=== PATIENT | male | born 1965 | race Caucasian/White ===

== ENCOUNTER 2016-03-20 16:48 | Emergency (ER) | payer SELFPAY ==
[~2016-03-20] VITALS: Ht 170.2 cm; Wt 89.0 kg
[~2016-03-20 16:48] MED LIST: ALBU1AER INH; CYCL-36 PO; IBUP-238 PO; LORTA5 PO; PRED50 PO
[2016-03-20 16:56] VITALS: BP 139/86; PULSE 84; RESP 16; TEMP 99.1; O2SAT 98
[2016-03-20] MEDS ORDERED: IPRA0.06 EACH NARE (18:07)
[2016-03-20] MEDS ORDERED: IBUP800T23 PO (18:07)
--- NOTE | 2016-03-20 18:07 | PD ---
HPI Chief Complaint: Cold / Flu Symptoms Time Seen by Provider: 18:00 Travel History International Travel<30 days: No Contact w/Intl Traveler<30days: No Traveled to known affect area: No History of Present Illness HPI Patient is a 50-year-old male who presents emergency department for evaluation of a cough and nasal congestion. Patient states his symptoms have been present for 3 days. Patient had a Z-Link at his house that he started when his symptoms started. He denies any documented fevers but reports chills. He has no other complaints at this time. He does not smoke. He states the cough is dry, nonproductive, worse at night. He also reports postnasal drip. PFSH Past Medical History Arthritis: Yes (DIAGNOSED AT 12 YRS. OLD) Asthma: No Autoimmune Disease: No Blood Disorders: No Anxiety: No Depression: No Heart Rhythm Problems: No Cancer: No Cardiovascular Problems: Yes High Cholesterol: Yes (DIAGNOSED IN 2004.) Chemotherapy: No Chest Pain: No Congestive Heart Failure: No COPD: No Cerebrovascular Accident: No Diminished Hearing: No Endocrine: No Gastrointestinal Disorders: Yes GERD: Yes Genitourinary: No Headaches: No Hepatitis: No Hiatal Hernia: No Hypertension: No Immune Disorder: No Kidney Stones: No Neurologic: No Respiratory: No Migraines: No Myocardial Infarction: No Radiation Therapy: No Renal Failure: No Seizures: No Sleep Apnea: No Ulcer: No Past Surgical History Abdominal Surgery: Yes (APPENDECTOMY 2002) AICD: No Appendectomy: Yes (PERFORMED IN 2002) Arteriovenous Shunt: No Cardiac Surgery: No Cholecystectomy: No Ear Surgery: No Eye Surgery: No Genitourinary Surgery: No Gynecologic Surgery: No Insulin Pump: No Joint Replacement: No Oral Surgery: No Pacemaker: No Thoracic Surgery: No Other Surgery: Yes Social History Alcohol Use: No (DECEMBER OF 2005) Tobacco Use: No Substance Use: No (COCAINE LAST USED IN DECEMBER 2005.) Allergies-Medications (Allergen,Severity, Reaction): Coded Allergies: No Known Allergies (Verified , 03/20/16) Reported Meds & Prescriptions Reported Meds & Active Scripts Active Review of Systems Except as stated in HPI: all other systems reviewed are Neg General / Constitutional: Positive: Chills, No: Fever HENT: Positive: Rhinitis, Congestion, No: Headaches, Neck Pain Cardiovascular: No: Chest Pain or Discomfort Respiratory: Positive: Cough, No: Shortness of Breath Gastrointestinal: No: Nausea, Vomiting, Diarrhea Musculoskeletal: No: Myalgias Physical Exam Narrative GENERAL well-developed, well-nourished, alert male. Resting comfortably in no acute distress. SKIN: Warm and dry. HEAD: Atraumatic. Normocephalic. EYES: Pupils equal and round. No scleral icterus. No injection or drainage. ENT: No nasal bleeding or discharge. Mucous membranes pink and moist. Posterior pharynx cobblestone appearance. NECK: Trachea midline. No JVD. CARDIOVASCULAR: Regular rate and rhythm. No murmur appreciated. RESPIRATORY: No accessory muscle use. Clear to auscultation. Breath sounds equal bilaterally. GASTROINTESTINAL: Abdomen soft, non-tender, nondistended. Hepatic and splenic margins not palpable. MUSCULOSKELETAL: No obvious deformities. No clubbing. No cyanosis. No edema. NEUROLOGICAL: Awake and alert. No obvious cranial nerve deficits. Motor grossly within normal limits. Normal speech. PSYCHIATRIC: Appropriate mood and affect; insight and judgment normal. Data Data Last Documented VS Vital Signs Date Time Temp Pulse Resp B/P Pulse Ox O2 Delivery O2 Flow Rate FiO2 03/20/16 16:56 99.1 84 16 139/86 98 [facility] Medical Decision Making Medical Screen Exam Complete: Yes Emergency Medical Condition: Yes Interpretation(s) Vital Signs Date Time Temp Pulse Resp B/P Pulse Ox O2 Delivery O2 Flow Rate FiO2 03/20/16 16:56 99.1 84 16 139/86 98 Differential Diagnosis Viral syndrome versus bronchitis versus pneumonia versus sinusitis versus other Narrative Course Patient is a 50-year-old male who presents emergency department for evaluation of nasal congestion and cough. Patient started himself on azithromycin 3 days ago. Physical examination is most consistent with a viral upper respiratory infection. Patient's vital signs are stable. He is afebrile and well oxygenated on room air. Patient was encouraged to continue with symptomatic management. He was encouraged to obtain [id number] Sudafed, nasal saline wash. Patient be provided with a prescription for Atrovent nasal spray. He is encouraged to follow-up with her primary doctor return to emergency department for any new or worsening symptoms. He was advised just to complete the Z-Link since he has started it. Patient verbalized understanding of discharge instructions. Patient is stable for discharge. Diagnosis Primary Impression: Viral URI with cough Referrals: Primary Care Physician Patient Instructions: General Instructions, Upper Respiratory Infection (ED) Additional Instructions: Follow-up with your primary doctor Continue symptom management Obtain [id number] Sudafed or nasal decongestant and use as directed Obtain nasal saline wash and use as directed Return to emergency department for any new or worsening symptoms Med/Other Pt SpecificInfo: Prescription(s) given Scripts Ibuprofen 800 Mg [id number] Mg PO Q8H PRN (Pain/Inflammation) #60 TAB Ref 0 Prov:Diana Morgan 03/20/16 Ipratropium Nasal 0.06% Spray1 [place] EACH NARE QID #1 BOTTLE Ref 0 Prov:Diana Morgan 03/20/16 Disposition: 01 DISCHARGE HOME Condition: Stable Diana Morgan Mar 20, 2016 18:07
== END 2016-03-20 18:15 | disposition home or self-care (01) ==
LOC: PHED 16:48 → PHEFT 18:15
DX: J06.9 Acute upper respiratory infection, unspecified (principal); R05 Cough; E78.00 Pure hypercholesterolemia, unspecified; R09.82 Postnasal drip
CPT/HCPCS: 99283

== ENCOUNTER 2016-03-25 11:48 | Emergency (ER) | payer SELFPAY ==
[~2016-03-25] VITALS: Ht 170.2 cm; Wt 89.3 kg
[~2016-03-25 11:48] MED LIST changes: -ALBU1AER INH; -CYCL-36 PO; -IBUP-238 PO; +IBUP800T23 PO; +IPRA0.06 EACH NARE; -LORTA5 PO; -PRED50 PO
[2016-03-25 11:57] VITALS: BP 126/88; PULSE 80; RESP 16; TEMP 98.3; O2SAT 96
--- NOTE | 2016-03-25 12:11 | PD ---
HPI Chief Complaint: Cold / Flu Symptoms Time Seen by Provider: 12:09 Travel History International Travel<30 days: No Contact w/Intl Traveler<30days: No Traveled to known affect area: No History of Present Illness HPI 50-year-old male presents to the emergency department for evaluation of cold symptoms. Patient was seen on Wednesday and was given a nasal spray. He states that he had a Z-Link at home that he took. He finished it yesterday. He states the cough has improved, but he does report increased chest congestion and nasal congestion. He states he has run a low-grade fever of 100.0 in the past. No fever currently. He does report a history of bronchitis. He is not taking any prescribed medications. Denies any chest pain. No abdominal pain. No vomiting. No other symptoms. He has not followed up with a primary care physician for this issue. PFSH Past Medical History Arthritis: Yes (DIAGNOSED AT 12 YRS. OLD) Asthma: No Autoimmune Disease: No Blood Disorders: No Anxiety: No Depression: No Heart Rhythm Problems: No Cancer: No Cardiovascular Problems: Yes High Cholesterol: Yes (DIAGNOSED IN 2004.) Chemotherapy: No Chest Pain: No Congestive Heart Failure: No COPD: No Cerebrovascular Accident: No Diminished Hearing: No Endocrine: No Gastrointestinal Disorders: Yes GERD: Yes Genitourinary: No Headaches: No Hepatitis: No Hiatal Hernia: No Hypertension: No Immune Disorder: No Kidney Stones: No Neurologic: No Respiratory: No Migraines: No Myocardial Infarction: No Pneumonia: Yes Radiation Therapy: No Renal Failure: No Seizures: No Sleep Apnea: No Ulcer: No Tetanus Vaccination: > 5 Years Influenza Vaccination: No Past Surgical History Abdominal Surgery: Yes (APPENDECTOMY 2002) AICD: No Appendectomy: Yes (PERFORMED IN 2002) Arteriovenous Shunt: No Cardiac Surgery: No Cholecystectomy: No Ear Surgery: No Eye Surgery: No Genitourinary Surgery: No Gynecologic Surgery: No Insulin Pump: No Joint Replacement: No Oral Surgery: No Pacemaker: No Thoracic Surgery: No Other Surgery: Yes Social History Alcohol Use: No (DECEMBER OF 2005) Tobacco Use: No Substance Use: No (COCAINE LAST USED IN DECEMBER 2005.) Allergies-Medications (Allergen,Severity, Reaction): Coded Allergies: No Known Allergies (Verified , 03/25/16) Reported Meds & Prescriptions Reported Meds & Active Scripts Active Ibuprofen 800 Mg Tab 800 Mg PO Q8H PRN Ipratropium Nasal 0.06% [place] 1 [place] EACH NARE QID Review of Systems Except as stated in HPI: all other systems reviewed are Neg Physical Exam Narrative GENERAL: Well-developed well-nourished male patient, ambulatory. Afebrile. SKIN: Warm and dry. HEAD: Normocephalic. Atraumatic. No sinus tenderness to palpation ENT: Mucosa pink and moist. No erythema or exudates. No uvular edema. No uvular , palatal, or tonsillar deviation. Airway patent. Nasal turbinates appear normal without nasal blood, purulent drainage or septal hematoma. Bilateral tympanic membranes are clear without erythema or perforation. EYES: No scleral icterus. No injection or drainage. NECK: Supple, trachea midline. No JVD or lymphadenopathy. CARDIOVASCULAR: Regular rate and rhythm without murmurs, gallops, or rubs. RESPIRATORY: Breath sounds equal bilaterally. No accessory muscle use. Lungs sounds are clear to auscultation. GASTROINTESTINAL: Abdomen soft, non-tender, nondistended. MUSCULOSKELETAL: No cyanosis, or edema. BACK: Nontender without obvious deformity. No CVA tenderness. Data Data Last Documented VS Vital Signs Date Time Temp Pulse Resp B/P Pulse Ox O2 Delivery O2 Flow Rate FiO2 03/25/16 12:06 Room Air 03/25/16 11:57 98.3 80 16 126/88 96 Orders Chest, Single Ap (03/25/16 ) [facility] Medical Decision Making Medical Screen Exam Complete: Yes Emergency Medical Condition: Yes Medical Record Reviewed: Yes Interpretation(s) chest x-ray - CONCLUSION: No acute disease. No significant change has occurred. Differential Diagnosis Viral URI versus bronchitis versus pneumonia Narrative Course 50-year-old male presents to the emergency department for evaluation of cold symptoms. Physical exam is reassuring. Patient has started taking a Z-Link and start his symptoms. Symptoms are consistent with a virus. Chest x-ray is ordered to rule out pneumonia. Chest x-ray shows no acute disease. Symptoms are consistent with a viral URI. I do not see any evidence of acute bacterial infection at this time. The patient already took a Z-Link previously and just finished yesterday. He is to rest, troponin fluids, follow up with his primary care physician. He is to return for any acute worsening symptoms. He is agreeable. Diagnosis Primary Impression: Viral URI with cough Referrals: Primary Care Physician call for appointment Patient Instructions: General Instructions, Upper Respiratory Infection (ED) Departure Forms: Tests/Procedures, Work Release Enter return to work date: Mar 27, 2016 Additional Instructions: Rest. Follow-up with your primary care physician. Return to the emergency department for any acute worsening of symptoms. Med/Other Pt SpecificInfo: No Change to Meds Disposition: 01 DISCHARGE HOME Condition: Stable Yanira Moreno Mar 25, 2016 12:11
--- NOTE | 2016-03-25 12:30 | RADHPO ---
EXAM DATE/TIME: 03/25/2016 12:19 [place] COMPARISON: CHEST PA & LAT, March 28, 2014, 10:44. INDICATIONS : Cough and congestion MEDICAL HISTORY : Pneumonia SURGICAL HISTORY : None. ENCOUNTER: Initial ACUITY: 3 days PAIN SCORE: 4/10 LOCATION: Bilateral chest FINDINGS: A single view of the chest demonstrates the lungs to be symmetrically aerated without evidence of mas s, infiltrate or effusion. The cardiomediastinal contours are unremarkable. Osseous structures are intact. CONCLUSION: No acute disease. No significant change has occurred. Nicolas Quevedo MD on March 25, 2016 at 12:29 Board Certified Radiologist. This report was verified electronically.
== END 2016-03-25 12:50 | disposition home or self-care (01) ==
LOC: PHEFT 11:48
DX: J06.9 Acute upper respiratory infection, unspecified (principal); R05 Cough; Z87.898 Personal history of other specified conditions
CPT/HCPCS: 71010; 99283

== ENCOUNTER 2016-06-25 02:41 | Emergency (ER) | payer SELFPAY ==
[~2016-06-25] VITALS: Ht 170.2 cm; Wt 87.4 kg
[2016-06-25 02:49] VITALS: BP 126/81; PULSE 103; RESP 16; TEMP 100.6; O2SAT 95
[2016-06-25 03:14] VITALS: BP 135/79; PULSE 103; RESP 18; TEMP 99; O2SAT 96
[2016-06-25] MEDS ORDERED: SODIUM CHLOR 0.9% 1000 ML INJ 1,000 ML IV SCH (03:16)
--- NOTE | 2016-06-25 03:23 | PD ---
HPI Chief Complaint: vomiting Time Seen by Provider: 03:16 Travel History International Travel<30 days: No Contact w/Intl Traveler<30days: No Traveled to known affect area: No History of Present Illness HPI 50-year-old male presents to the emergency department for complaint of abdominal pain associated with nausea vomiting and diarrhea. Patient states symptoms began around 8 PM. Patient's had numerous episodes of vomiting and now has these. No coffee-ground emesis no hematemesis no bilious emesis also has had multiple episodes of diarrhea that have been watery in nature without obvious blood. Stool has been mucoid. No report of inflammatory bowel disease/ ulcerative colitis. Patient does not report any dietary indiscretion well water ingestion or foreign travel. Patient has continued to make urine. Patient's had no fever or chills. Patient denies chronic medical illnesses although review of medical records identifies history of dyslipidemia and arthritis and prior appendectomy. No recent alcohol use or substance use. Patient has had no chest pain or shortness of breath. PFSH Past Medical History Narrative Medical Arthritis dyslipidemia appendectomy no alcohol tobacco or substance use ; nursing notes reviewed Arthritis: Yes (DIAGNOSED AT 12 YRS. OLD) Asthma: No Autoimmune Disease: No Blood Disorders: No Anxiety: No Depression: No Heart Rhythm Problems: No Cancer: No Cardiovascular Problems: Yes High Cholesterol: Yes (DIAGNOSED IN 2004.) Chemotherapy: No Chest Pain: No Congestive Heart Failure: No COPD: No Cerebrovascular Accident: No Diminished Hearing: No Endocrine: No Gastrointestinal Disorders: Yes GERD: Yes Genitourinary: No Headaches: No Hepatitis: No Hiatal Hernia: No Hypertension: No Immune Disorder: No Kidney Stones: No Neurologic: No Respiratory: No Migraines: No Myocardial Infarction: No Pneumonia: Yes Radiation Therapy: No Renal Failure: No Seizures: No Sleep Apnea: No Ulcer: No Past Surgical History Abdominal Surgery: Yes (APPENDECTOMY 2002) AICD: No Appendectomy: Yes (PERFORMED IN 2002) Arteriovenous Shunt: No Cardiac Surgery: No Cholecystectomy: No Ear Surgery: No Eye Surgery: No Genitourinary Surgery: No Gynecologic Surgery: No Insulin Pump: No Joint Replacement: No Oral Surgery: No Pacemaker: No Thoracic Surgery: No Other Surgery: Yes Social History Alcohol Use: No (DECEMBER OF 2005) Tobacco Use: No Substance Use: No (COCAINE LAST USED IN DECEMBER 2005.) Allergies-Medications (Allergen,Severity, Reaction): Coded Allergies: No Known Allergies (Verified , 03/25/16) Reported Meds & Prescriptions Reported Meds & Active Scripts Active Protonix (Pantoprazole Sodium) 40 Mg Tab 40 Mg PO DAILY Zofran Odt (Ondansetron Odt) 4 Mg Tab 4 Mg SL Q6HR PRN Ibuprofen 800 Mg Tab 800 Mg PO Q8H PRN Ipratropium Nasal 0.06% [place] 1 [place] EACH NARE QID Review of Systems Except as stated in HPI: all other systems reviewed are Neg General / Constitutional: No: Fever Cardiovascular: No: Chest Pain or Discomfort Respiratory: No: Shortness of Breath Gastrointestinal: Positive: Nausea, Vomiting, Diarrhea, Abdominal Pain, No: Hematemesis, Hematochezia Genitourinary: No: Dysuria, Decreased Urinary Output Musculoskeletal: No: Myalgias, Arthralgias Skin: No Rash Neurologic: No: Weakness Psychiatric: No: Anxiety Endocrine: No: Heat Intolerance Hematologic/Lymphatic: No: Easy Bruising Physical Exam Narrative GENERAL: Well-developed well-nourished male in no acute distress no respiratory distress SKIN: Warm and dry. HEAD: Normocephalic. EYES: No scleral icterus. No injection or drainage. NECK: Supple, trachea midline. No JVD or lymphadenopathy. CARDIOVASCULAR: Regular rate and rhythm without murmurs, gallops, or rubs. RESPIRATORY: Breath sounds equal bilaterally. No accessory muscle use. GASTROINTESTINAL: Abdomen soft, non-tender, nondistended. MUSCULOSKELETAL: No cyanosis, or edema. BACK: Nontender without obvious deformity. No CVA tenderness. Data Data Last Documented VS Vital Signs Date Time Temp Pulse Resp B/P Pulse Ox O2 Delivery O2 Flow Rate FiO2 06/25/16 03:34 103 16 126/81 95 06/25/16 03:14 99.0 Room Air Orders Complete Blood Count With Diff (06/25/16 03:16) Comprehensive Metabolic Panel (06/25/16 03:16) Lipase (06/25/16 03:16) Lactic Acid (06/25/16 03:16) Urinalysis - C+S If Indicated (06/25/16 03:16) Ct Abd/Pel W Iv Contrast(Rout) (06/25/16 03:16) Iv Access Insert/Monitor (06/25/16 03:16) Ecg Monitoring (06/25/16 03:16) Oximetry (06/25/16 03:16) Ondansetron Inj (Zofran Inj) (06/25/16 03:30) Sodium Chlor 0.9% 1000 Ml Inj (Ns 1000 M (06/25/16 03:16) Blood Culture (06/25/16 03:16) Enteric Path (Stool) (06/25/16 03:16) Sodium Chlor 0.9% 1000 Ml Inj (Ns 1000 M (06/25/16 04:00) Iohexol 350 Inj (Omnipaque 350 Inj) (06/25/16 04:14) Ondansetron Inj (Zofran Inj) (06/25/16 04:45) Pantoprazole Inj (Protonix Inj) (06/25/16 04:45) Ketorolac Inj (Toradol Inj) (06/25/16 04:45) Labs Laboratory Tests Test 06/25/16 06/25/16 03:14 03:25 White Blood Count 11.0 TH/MM3 Red Blood Count 4.75 MIL/MM3 Hemoglobin 14.9 GM/DL Hematocrit 42.6 % Mean Corpuscular Volume 89.7 FL Mean Corpuscular Hemoglobin 31.3 PG Mean Corpuscular Hemoglobin 34.9 % Concent Red Cell Distribution Width 12.8 % Platelet Count 284 TH/MM3 Mean Platelet Volume 8.2 FL Neutrophils (%) (Auto) % Lymphocytes (%) (Auto) % Monocytes (%) (Auto) % Eosinophils (%) (Auto) % Basophils (%) (Auto) % Neutrophils # (Auto) TH/MM3 Lymphocytes # (Auto) TH/MM3 Monocytes # (Auto) TH/MM3 Eosinophils # (Auto) TH/MM3 Basophils # (Auto) TH/MM3 CBC Comment AUTO DIFF Differential Total Cells 100 Counted Neutrophils % (Manual) 84 % Band Neutrophils % 3 % Lymphocytes % 5 % Monocytes % 7 % Basophils % 1 % Neutrophils # (Manual) 9.6 TH/MM3 Differential Comment FINAL DIFF MANUAL Platelet Estimate NORMAL Platelet Morphology Comment NORMAL Red Cell Morphology Comment NORMAL Urine Color YELLOW Urine Turbidity CLEAR Urine pH 7.5 Urine Specific [place] 1.027 Urine Protein TRACE mg/dL Urine Glucose (UA) NEG mg/dL Urine Ketones NEG mg/dL Urine Occult Blood NEG Urine Nitrite NEG Urine Bilirubin NEG Urine Leukocyte Esterase NEG Urine RBC 0-2 /hpf Urine WBC 0-2 /hpf Urine Squamous Epithelial 0-5 /hpf Cells Urine Bacteria NONE /hpf Microscopic Urinalysis Comment CULT NOT INDICATED Sodium Level 140 MEQ/L Potassium Level 4.1 MEQ/L Chloride Level 103 MEQ/L Carbon Dioxide Level 29.1 MEQ/L Anion Gap 8 MEQ/L Blood Urea Nitrogen 22 MG/DL Creatinine 1.20 MG/DL Estimat Glomerular Filtration 64 ML/MIN Rate Random Glucose 138 MG/DL Calcium Level 8.8 MG/DL Total Bilirubin 0.7 MG/DL Aspartate Amino Transf 25 U/L (AST/SGOT) Alanine Aminotransferase 49 U/L (ALT/SGPT) Alkaline Phosphatase 81 U/L Total Protein 7.6 GM/DL Albumin 4.0 GM/DL Lipase 168 U/L Lactic Acid Level 1.6 mmol/L [facility] Medical Decision Making Medical Screen Exam Complete: Yes Emergency Medical Condition: Yes Medical Record Reviewed: Yes Interpretation(s) CBC & BMP Diagram 06/25/16 03:14 Vital Signs Date Time Temp Pulse Resp B/P Pulse Ox O2 Delivery O2 Flow Rate FiO2 06/25/16 03:34 103 16 126/81 95 06/25/16 03:14 99.0 103 18 135/79 96 Room Air 06/25/16 03:14 18 06/25/16 02:49 100.6 103 16 126/81 95 Last Impressions Abdomen/Pelvis CT 06/25/16 0316 Signed Impressions: Service Date/Time: , June 25, 2016 04:06 - CONCLUSION: 1. 2 cm cyst in the lower aspect of the spleen. 2. Scattered diverticulosis of the colon without inflammatory changes. 3. 2.5 cm soft tissue density in the subcutaneous soft tissues along the posterior right back at the level of the right hemithorax. This may be a large sebaceous cyst. Recommend correlation with physical exam. 4. 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 along with 4 mg Zofran IV It is 4:05 AM patient is clinically improved nausea has diminished discomfort 3/ 10 in intensity declines any narcotic pain medication lab values resulted and found to be remarkable for left shift 84% neutrophils by CBC is automated differential, mild renal insufficiency with elevated V1 and GFR 64 otherwise values in normal range with normal bicarbonate and anion gap; urinalysis normal Patient given additional liter of normal saline CT abdomen and pelvis pending It is 4:37 AM patient complains of nausea additional Zofran administered 4 mg IV CBC with automated differential shows a total white cell count 11,000 with normal hemoglobin hematocrit platelet count but does have left shift 84% neutrophils with 3% bands; lactic acid is not elevated 1.6; chemistries are within normal range except mild renal insufficiency with a GFR of 64 and urinalysis is normal; patient does not meet SIRS criteria as temperature 100.6F , heart rate elevated at 103 however respiratory rate is in normal range and not elevated and total white cell count is 11,000 with 3% bands. CT abdomen and pelvis reveals no identified acute intra-abdominal pelvic inflammatory or infectious process. At this point in time patient appears to have acute gastroenteritis with dehydration. Will administered Toradol 30 mg IV for pain, 3/10 in intensity and patient is receiving second liter of normal saline. Once fluids have infused; will attempt trial of oral hydration. At 6 AM patient feels well desirous of being discharged to home no further nausea taking oral hydration well and no pain. Patient is stable for outpatient management and follow-up with his primary care provider. Sepsis Criteria SIRS Criteria (2 or more): Heart rate over 90 Diagnosis Primary Impression: Gastroenteritis Additional Impression: Dehydration Referrals: Primary Care Physician call for appointment Patient Instructions: General Instructions Departure Forms: Tests/Procedures, Work Release Special Instructions: no work x 1 day Additional Instructions: Follow clear liquid diet for next 12-24 hours advance as tolerated to bland/ Khari diet then regular diet Increase fluid hydration Return to the emergency department for any concerns or change in condition Take acetaminophen/Tylenol every 4 hours as needed for fever 100.4F or greater or may use ibuprofen/Advil/Motrin every 6-8 hours as needed for fever 100.4F or greater or for pain associated with inflammation Take medication as prescribed as needed for nausea and/or vomiting No work times one day Follow-up with your primary care provider call office name to schedule follow- up appointment Med/Other Pt SpecificInfo: Prescription(s) given Scripts Pantoprazole (Protonix)40 Mg Tab40 Mg PO DAILY #15 TAB Ref 0 Prov:Angela Ham MD 06/25/16 Ondansetron Odt (Zofran Odt)4 Mg Tab4 Mg SL Q6HR PRN (Nausea/Vomiting) #30 TAB Ref 0 Prov:Angela Ham MD 06/25/16 Disposition: 01 DISCHARGE HOME Condition: Stable Angela Ham MD Jun 25, 2016 03:23
[2016-06-25] MEDS ORDERED: ONDANSETRON HCL 4 MG/2 ML VIAL IVP ONE (03:30)
[2016-06-25 03:34] VITALS: BP 126/81; PULSE 103; RESP 16; O2SAT 95
[2016-06-25 03:39] LABS: HEMATOCRIT 42.6 % (39.0-51.0); MEAN CELL VOLUME 89.7 FL (80.0-100.0); MEAN CORPUSCULAR HEMOGLOBIN 31.3 PG (27.0-34.0); MEAN CORPUSCULAR HGB CONC 34.9 % (32.0-36.0); PLATELET COUNT 284 TH/MM3 (150-450); RED BLOOD COUNT 4.75 MIL/MM3 (4.50-5.90); RED CELL DISTRIBUTION WIDTH 12.8 % (11.6-17.2)
[2016-06-25 03:42] LABS: BLOOD, URINE NEG (NEG); GLUCOSE,URINE NEG (NEG); KETONE, URINE NEG (NEG); NITRITE,URINE NEG (NEG); PH, URINE 7.5 (5.0-8.5)
[2016-06-25 03:44] LABS: HEMO FLAGS AUTO DIFF
[2016-06-25 03:49] LABS: URINE COLOR YELLOW (YELLW/STRAW)
[2016-06-25 03:50] LABS: COMMENT (UR) CULT NOT INDICATED; CULTURE IF INDICATED CULT NOT INDICATED; RBC, URINE 0-2 /hpf (0-3); SQUAMOUS EPITHELIAL CELL URINE 0-5 /hpf (0-5); WBC, URINE 0-2 /hpf (0-5)
[2016-06-25 03:51] LABS: CHLORIDE 103 MEQ/L (98-107); POTASSIUM 4.1 MEQ/L (3.5-5.1); SODIUM (NA) 140 MEQ/L (136-145)
[2016-06-25 03:55] LABS: ANION GAP 8 MEQ/L (5-15); BICARBONATE 29.1 MEQ/L (21.0-32.0); BLOOD UREA NITROGEN 22 MG/DL (7-18)
[2016-06-25 03:57] LABS: ALT (GPT) 49 U/L (12-78)
[2016-06-25 03:58] LABS: AST (GOT) 25 U/L (15-37); GLOMERULAR FILTRATION RATE 64 ML/MIN (>89)
[2016-06-25 03:59] LABS: TOTAL BILIRUBIN ADULT 0.7 MG/DL (0.2-1.0)
[2016-06-25 04:00] LABS: BANDS 3 % (0-6); BASOPHILS 1 % (0-2); NEUTROPHIL # MANUAL DIFF 9.6 TH/MM3 (1.8-7.7); PLATELET ESTIMATE SMEAR NORMAL (NORMAL); PLATELET MORPHOLOGY NORMAL (NORMAL); POLYS (SEG NEUTROPHILS) 84 % (16-70); SCAN/DIFF FINAL DIFF MANUAL; WBC DIFF SAMPLE 100
[2016-06-25] MEDS ORDERED: SODIUM CHLOR 0.9% 1000 ML INJ 1,000 ML IV ONE (04:00)
[2016-06-25 04:01] LABS: ALKALINE PHOSPHATASE 81 U/L (45-117)
[2016-06-25] MEDS ORDERED: IOHEXOL 350 MG/ML 10 ML VIAL (for RAD DIAG) IV ONE (04:14)
--- NOTE | 2016-06-25 04:33 | RADHPO ---
EXAM DATE/TIME: 06/25/2016 04:06 [place] COMPARISON: No previous studies available for comparison. INDICATIONS : Abdomen pain. IV CONTRAST: 100 cc Omnipaque 350 (iohexol) IV ORAL CONTRAST: No oral contrast ingested. RADIATION DOSE: 14.93 CTDIvol (mGy) MEDICAL HISTORY : Cardiovascular disease. SURGICAL HISTORY : Appendectomy. ENCOUNTER: Initial ACUITY: 1 day PAIN SCALE: 5/10 LOCATION: Bilateral abdomen. TECHNIQUE: Volumetric scanning of the abdomen and pelvis was performed. Using automated exposure control and ad justment of the mA and/or kV according to patient size, radiation dose was kept as low as reasonably achievable to obtain optimal diagnostic quality images. FINDINGS: LOWER LUNGS: The visualized lower lungs are clear. LIVER: Homogeneous density without lesion. There is no dilation of the biliary tree. No calcified gallston es. SPLEEN: There is a 2 cm cyst along the inferior aspect of the spleen. The spleen is not enlarged. PANCREAS: Within normal limits. KIDNEYS: Normal in size and shape. There is no mass, stone or hydronephrosis. ADRENAL GLANDS: Within normal limits. VASCULAR: There is no aortic aneurysm. BOWEL/MESENTERY: The stomach, small bowel, and colon demonstrate no acute abnormality. There is no free intraperitone al air or fluid. There is some scattered diverticulosis of the colon. No inflammatory changes. There is stool throughout the colon. ABDOMINAL WALL: 2.5 cm soft tissue density in the subcutaneous soft tissues along the posterior right back at the loc al of the lower right hemithorax. RETROPERITONEUM: There is no lymphadenopathy. BLADDER: No wall thickening or mass. REPRODUCTIVE: Within normal limits. INGUINAL: There is no lymphadenopathy or hernia. MUSCULOSKELETAL: Within normal limits for patient age. CONCLUSION: 1. 2 cm cyst in the lower aspect of the spleen. 2. Scattered diverticulosis of the colon without inflammatory changes. 3. 2.5 cm soft tissue density in the subcutaneous soft tissues along the posterior right back at the level of the right hemithorax. This may be a large sebaceous cyst. Recommend correlation with physica l exam. 4. No acute intra-abdominal/pelvic pathology Ty Wheeler MD on June 25, 2016 at 4:25 Board Certified Radiologist. This report was verified electronically.
[2016-06-25] MEDS ORDERED: KETOROLAC TROMETHAMINE 30 MG/ML (IVP) VIAL IV PUSH ONE (04:45)
[2016-06-25] MEDS ORDERED: PANTOPRAZOLE SODIUM 40 MG VIAL IV PUSH ONE (04:45)
[2016-06-25] MEDS ORDERED: ONDANSETRON HCL 4 MG/2 ML VIAL IV PUSH ONE (04:45)
[2016-06-25] MEDS ORDERED: PROT40TA PO (06:02)
[2016-06-25] MEDS ORDERED: ZOFR4TAB3 SL (06:02)
[2016-06-25 06:15] VITALS: BP 99/55
== END 2016-06-25 06:17 | disposition home or self-care (01) ==
LOC: PHED 02:41
DX: K52.9 Noninfective gastroenteritis and colitis, unspecified (principal); E86.0 Dehydration; R10.9 Unspecified abdominal pain; K21.9 Gastro-esophageal reflux disease without esophagitis
CPT/HCPCS: 74177; 80053; 81001; 83605; 83690; 85007; 85027; 87040; 87506; 96361; 96374; 96375; 96376; 99284; C9113; J1885; J2405; J7030; Q9967

== ENCOUNTER 2016-09-19 17:25 | Emergency (ER) | payer SELFPAY ==
[~2016-09-19] VITALS: Ht 170.2 cm; Wt 91.0 kg
[~2016-09-19 17:25] MED LIST changes: +PROT40TA PO; +ZOFR4TAB3 SL
[2016-09-19 17:29] VITALS: BP 142/83; PULSE 95; RESP 16; TEMP 99.6; O2SAT 97
[2016-09-19] MEDS ORDERED: MORPHINE SULFATE 4 MG/ML INJ IV PUSH ONE (17:45)
[2016-09-19] MEDS ORDERED: SODIUM CHLORIDE 0.9% FLUSH 10 ML FLUSH IV FLUSH PRN (17:45)
[2016-09-19] MEDS ORDERED: LIDOCAINE 1%/EPINEPHrine 1:100,000 SOLN 20 ML VIAL INFIL ONE (17:45)
--- NOTE | 2016-09-19 17:48 | PD ---
HPI Chief Complaint: Skin Problem Time Seen by Provider: 17:37 Travel History International Travel<30 days: No Contact w/Intl Traveler<30days: No Traveled to known affect area: No History of Present Illness HPI 50-year-old male here for evaluation of painful lump to his right mid back. The patient reports that he has had a cystic like lesion in that area for the last 20 years. Over the last 3 days the area has increased in size dramatically as well as become painful. The patient has also had a fever. Pain is moderate to severe, worse with palpation. He has not tried to squeeze the area, but has been applying ice and warm compresses. There has been no drainage. No history of IVDU. PFSH Past Medical History Arthritis: Yes (DIAGNOSED AT 12 YRS. OLD) Asthma: No Autoimmune Disease: No Blood Disorders: No Anxiety: No Depression: No Heart Rhythm Problems: No Cancer: No Cardiovascular Problems: Yes High Cholesterol: Yes (DIAGNOSED IN 2004.) Chemotherapy: No Chest Pain: No Congestive Heart Failure: No COPD: No Cerebrovascular Accident: No Diminished Hearing: No Endocrine: No Gastrointestinal Disorders: Yes GERD: Yes Genitourinary: No Headaches: No Hepatitis: No Hiatal Hernia: No Hypertension: No Immune Disorder: No Kidney Stones: No Neurologic: No Respiratory: No Migraines: No Myocardial Infarction: No Pneumonia: Yes Radiation Therapy: No Renal Failure: No Seizures: No Sleep Apnea: No Ulcer: No Past Surgical History Abdominal Surgery: Yes (APPENDECTOMY 2002) AICD: No Appendectomy: Yes (PERFORMED IN 2002) Arteriovenous Shunt: No Cardiac Surgery: No Cholecystectomy: No Ear Surgery: No Eye Surgery: No Genitourinary Surgery: No Gynecologic Surgery: No Insulin Pump: No Joint Replacement: No Oral Surgery: No Pacemaker: No Thoracic Surgery: No Other Surgery: Yes Social History Alcohol Use: No (DECEMBER OF 2005) Tobacco Use: No Substance Use: No (COCAINE LAST USED IN DECEMBER 2005.) Allergies-Medications (Allergen,Severity, Reaction): Coded Allergies: No Known Allergies (Verified , 09/19/16) Reported Meds & Prescriptions Reported Meds & Active Scripts Active Keflex (Cephalexin) 500 Mg Cap 500 Mg PO Q8H Bactrim DS (Sulfamethoxazole-Trimethoprim) 800-160 Mg Tab 1 Tab PO BID Protonix (Pantoprazole Sodium) 40 Mg Tab 40 Mg PO DAILY Zofran Odt (Ondansetron Odt) 4 Mg Tab 4 Mg SL Q6HR PRN Ibuprofen 800 Mg Tab 800 Mg PO Q8H PRN Ipratropium Nasal 0.06% [place] [address] [place] EACH NARE QID Review of Systems Except as stated in HPI: all other systems reviewed are Neg Physical Exam Narrative GENERAL: Well-developed, well-nourished, no apparent distress. SKIN: Focused skin assessment warm/dry. Tattoos throughout body. Right/mid back with large area of fluctuance with overlying warmth and erythema. This area was evaluated using linear ultrasound probe in shows a large oval-shaped hypoechoic area that ranges from 0.5 cm to 2 cm deep. HEAD: Atraumatic. Normocephalic. EYES: Pupils equal and round. No scleral icterus. No injection or drainage. ENT: Mucous membranes pink and moist. CARDIOVASCULAR: Regular rate and rhythm. RESPIRATORY: No accessory muscle use. MUSCULOSKELETAL: No obvious deformities. No clubbing. No cyanosis. No edema. Skin exam as above. NEUROLOGICAL: Awake and alert. No obvious cranial nerve deficits. Motor grossly within normal limits. Normal speech. PSYCHIATRIC: Appropriate mood and affect; insight and judgment normal. Data Data Last Documented VS Vital Signs Date Time Temp Pulse Resp B/P Pulse Ox O2 Delivery O2 Flow Rate FiO2 09/19/16 18:19 80 16 144/76 100 Room Air 09/19/16 17:29 99.6 Orders Basic Metabolic Panel (Bmp) (09/19/16 17:43) Complete Blood Count With Diff (09/19/16 17:43) Prothrombin Time / Inr (Pt) (09/19/16 17:43) Act Partial Throm Time (Ptt) (09/19/16 17:43) Iv Access Insert/Monitor (09/19/16 17:43) Ecg Monitoring (09/19/16 17:43) Oximetry (09/19/16 17:43) Morphine Inj (Morphine Inj) (09/19/16 17:45) Sodium Chloride 0.9% Flush (Ns Flush) (09/19/16 17:45) Blood Culture (09/19/16 17:43) Lidocai-Epi 1%-1:100,000 Inj (Xylocaine- (09/19/16 17:45) Vancomycin Inj (Vancomycin Inj) (09/19/16 18:30) Wound Culture And Gram Stain (09/19/16 18:28) Labs Laboratory Tests Test 09/19/16 18:00 White Blood Count 12.5 TH/MM3 Red Blood Count 4.84 MIL/MM3 Hemoglobin 14.1 GM/DL Hematocrit 42.7 % Mean Corpuscular Volume 88.3 FL Mean Corpuscular Hemoglobin 29.2 PG Mean Corpuscular Hemoglobin 33.1 % Concent Red Cell Distribution Width 13.1 % Platelet Count 307 TH/MM3 Mean Platelet Volume 8.0 FL Neutrophils (%) (Auto) 72.8 % Lymphocytes (%) (Auto) 12.9 % Monocytes (%) (Auto) 9.6 % Eosinophils (%) (Auto) 1.6 % Basophils (%) (Auto) 3.1 % Neutrophils # (Auto) 9.1 TH/MM3 Lymphocytes # (Auto) 1.6 TH/MM3 Monocytes # (Auto) 1.2 TH/MM3 Eosinophils # (Auto) 0.2 TH/MM3 Basophils # (Auto) 0.4 TH/MM3 CBC Comment DIFF FINAL Differential Comment Prothrombin Time 9.9 SEC Prothromb Time International 0.9 RATIO Ratio Activated Partial 28.7 SEC Thromboplast Time Sodium Level 137 MEQ/L Potassium Level 4.3 MEQ/L Chloride Level 102 MEQ/L Carbon Dioxide Level 28.0 MEQ/L Anion Gap 7 MEQ/L Blood Urea Nitrogen 14 MG/DL Creatinine 1.20 MG/DL Estimat Glomerular Filtration 64 ML/MIN Rate Random Glucose 116 MG/DL Calcium Level 8.5 MG/DL MDM Medical Decision Making Medical Screen Exam Complete: Yes Emergency Medical Condition: Yes Differential Diagnosis Abscess, cellulitis, sepsis, epidermal inclusion cyst, seroma, hematoma Narrative Course [id number] male who is here for evaluation of a large lump/cyst to his right middle back. This area was evaluated with a bedside ultrasound and using the linear probe a large oval hypoechoic area was noted with a depth between 0.5 cm and 2 cm. Incision and drainage was performed with a significant amount of purulent discharge. Abscess was packed with half-inch iodoform gauze. Patient was given a dose of IV vancomycin and will be discharged home with a prescription for Bactrim and Keflex. CBC shows a slightly elevated white count of 12.5, otherwise essentially unremarkable. BMP is unremarkable. Patient instructed to return to the emergency Department in 2 days for a wound check. He was informed on when to return to the emergency Department sooner. Both the patient and the patient's significant other verbalize understanding and agreement with plan. Procedures Procedure Narrative Incision and drainage of right upper back abscess: Area prepped with Betadine. 1 cc of 1% lidocaine with epinephrine injected over area of highest fluctuance. 2 cm linear/horizontal incision was made over highest point of fluctuance. A moderate amount of purulent/foul-smelling discharge was expressed. All loculations opened. Wound cavity irrigated with 50:50 Betadine/normal saline solution. Wound was packed with 1/2 inch iodoform gauze. Patient tolerated procedure well. No complications. Diagnosis Primary Impression: Abscess Referrals: Arturo Gonzalez MD 1 week General surgeon Primary Care Physician 2 days Additional Instructions: Take antibiotics as prescribed. Return to the emergency department in 48 hours for a wound check. Return to the emergency Department sooner for worsening symptoms or any other concerns. Scripts Cephalexin (Keflex)500 Mg [id number] Mg PO Q8H #30 CAP Ref 0 Prov:Raphael Pearson MD 09/19/16 Sulfamethoxazole-Trimethoprim (Bactrim DS)800-160 Mg Tab1 Tab PO BID #20 TAB Ref 0 Prov:Raphael Pearson MD 09/19/16 Disposition: 01 DISCHARGE HOME Condition: Stable Raphael Pearson MD Sep 19, 2016 17:48
[2016-09-19 18:07] VITALS: O2SAT 100
[2016-09-19 18:08] LABS: AUTOMATED NEUTROPHIL # 9.1 TH/MM3 (1.8-7.7); BASOPHIL # 0.4 TH/MM3 (0-0.2); BASOPHIL % 3.1 % (0.0-2.0); EOSINOPHIL # 0.2 TH/MM3 (0-0.4); EOSINOPHIL % 1.6 % (0.0-4.0); HEMATOCRIT 42.7 % (39.0-51.0); HEMO FLAGS DIFF FINAL; LYMPH % 12.9 % (9.0-44.0); LYMPHOCYTE # 1.6 TH/MM3 (1.0-4.8); MEAN CELL VOLUME 88.3 FL (80.0-100.0); MEAN CORPUSCULAR HEMOGLOBIN 29.2 PG (27.0-34.0); MEAN CORPUSCULAR HGB CONC 33.1 % (32.0-36.0); MONO % 9.6 % (0.0-8.0); NEUT % 72.8 % (16.0-70.0); PLATELET COUNT 307 TH/MM3 (150-450); RED BLOOD COUNT 4.84 MIL/MM3 (4.50-5.90); RED CELL DISTRIBUTION WIDTH 13.1 % (11.6-17.2); WHITE BLOOD COUNT 12.5 TH/MM3 (4.0-11.0)
[2016-09-19 18:15] LABS: POTASSIUM 4.3 MEQ/L (3.5-5.1)
[2016-09-19 18:19] VITALS: BP 144/76; PULSE 80; RESP 16; O2SAT 100
[2016-09-19 18:21] LABS: APTT (PATIENT) 28.7 SEC (24.3-30.1); INTERNATIONAL NORMALIZED RATIO 0.9 RATIO; PROTHROMBIN TIME - PATIENT 9.9 SEC (9.8-11.6)
[2016-09-19] MEDS ORDERED: VANCOMYCIN INJ 1,000 MG in SODIUM CHLOR 0.9% 250 ML INJ 250 ML IV ONE (18:30)
[2016-09-19] MEDS ORDERED: BACT800T5 PO (18:35)
[2016-09-19] MEDS ORDERED: CEPH-460 PO (18:35)
[2016-09-19 19:42] VITALS: BP 130/74; PULSE 74; RESP 16; O2SAT 99
== END 2016-09-19 19:46 | disposition home or self-care (01) ==
LOC: PHED 17:25
DX: L02.212 Cutaneous abscess of back [any part, except buttock and flank] (principal); K21.9 Gastro-esophageal reflux disease without esophagitis; E78.00 Pure hypercholesterolemia, unspecified; R50.9 Fever, unspecified
CPT/HCPCS: 10061; 80048; 85025; 85610; 85730; 87040; 87070; 96365; 96375; 99284; J2270; J3370; J7050; 87205

== ENCOUNTER 2016-09-21 16:49 | Emergency (ER) | payer SELFPAY ==
[~2016-09-21] VITALS: Ht 170.2 cm; Wt 91.7 kg
[~2016-09-21 16:49] MED LIST changes: +BACT800T5 PO; +CEPH-460 PO
[2016-09-21 17:05] VITALS: BP 146/83; PULSE 91; RESP 18; TEMP 99.2; O2SAT 96
--- NOTE | 2016-09-21 17:21 | PD ---
HPI Chief Complaint: Skin Problem Time Seen by Provider: 16:58 Travel History International Travel<30 days: No Contact w/Intl Traveler<30days: No Traveled to known affect area: No History of Present Illness HPI 50-year-old male here for evaluation of a wound check. Patient was seen in the emergency department 2 days ago by me for a right upper back abscess which I incised and drained and expressed a significant amount of foul-smelling purulent discharge. Wound was packed, and the patient was discharged home with Bactrim and Keflex. Patient is reporting some mild to moderate pain at the site which is worse with movement and palpation. He states his fevers have resolved. PFSH Past Medical History Arthritis: Yes (DIAGNOSED AT 12 YRS. OLD) Asthma: No Autoimmune Disease: No Blood Disorders: No Anxiety: No Depression: No Heart Rhythm Problems: No Cancer: No Cardiovascular Problems: Yes High Cholesterol: Yes (DIAGNOSED IN 2004.) Chemotherapy: No Chest Pain: No Congestive Heart Failure: No COPD: No Cerebrovascular Accident: No Diminished Hearing: No Endocrine: No Gastrointestinal Disorders: Yes GERD: Yes Genitourinary: No Headaches: No Hepatitis: No Hiatal Hernia: No Hypertension: No Immune Disorder: No Kidney Stones: No Neurologic: No Respiratory: No Migraines: No Myocardial Infarction: No Pneumonia: Yes Radiation Therapy: No Renal Failure: No Seizures: No Sleep Apnea: No Ulcer: No Influenza Vaccination: No Past Surgical History Abdominal Surgery: Yes (APPENDECTOMY 2002) AICD: No Appendectomy: Yes (PERFORMED IN 2002) Arteriovenous Shunt: No Cardiac Surgery: No Cholecystectomy: No Ear Surgery: No Eye Surgery: No Genitourinary Surgery: No Gynecologic Surgery: No Insulin Pump: No Joint Replacement: No Oral Surgery: No Pacemaker: No Thoracic Surgery: No Other Surgery: Yes Social History Alcohol Use: No (DECEMBER OF 2005) Tobacco Use: No Substance Use: No (COCAINE LAST USED IN DECEMBER 2005.) Allergies-Medications (Allergen,Severity, Reaction): Coded Allergies: No Known Allergies (Verified , 09/19/16) Reported Meds & Prescriptions Reported Meds & Active Scripts Active Keflex (Cephalexin) 500 Mg Cap 500 Mg PO Q8H Bactrim DS (Sulfamethoxazole-Trimethoprim) 800-160 Mg Tab 1 Tab PO BID Protonix (Pantoprazole Sodium) 40 Mg Tab 40 Mg PO DAILY Ibuprofen 800 Mg Tab 800 Mg PO Q8H PRN Review of Systems Except as stated in HPI: all other systems reviewed are Neg Physical Exam Narrative GENERAL: Well-developed, well-nourished, comfortable, no apparent distress. SKIN: Right upper back with area of induration with an open wound with packing in place. There is a scant amount of purulent discharge. Surrounding area with mild warmth and erythema. CARDIOVASCULAR: Regular rate and rhythm. NEUROLOGICAL: Awake and alert. No obvious cranial nerve deficits. Motor grossly within normal limits. Normal speech. PSYCHIATRIC: Appropriate mood and affect; insight and judgment normal. Data Data Last Documented VS Vital Signs Date Time Temp Pulse Resp B/P Pulse Ox O2 Delivery O2 Flow Rate FiO2 09/21/16 17:05 99.2 91 18 146/83 96 MDM Medical Decision Making Medical Screen Exam Complete: Yes Emergency Medical Condition: Yes Medical Record Reviewed: Yes Differential Diagnosis Abscess, cellulitis, wound check Narrative Course SEE HPI. Packing removed and abscess cavity was irrigated with 25:75 solution of Betadine :NS. Cavity was then repacked with 1/2 inch iodoform packing. There is some mild overlying cellulitis. Wound cultures from 2 days ago had no growth. Patient encouraged to continue Bactrim and Keflex. The patient's significant other is a biomedical manager, and she feels comfortable changing the packing at home. I have instructed her to change the packing as I did today in 2 days, then to change the packing daily. Patient informed on when to return to the emergency department. He verbalizes understanding and agreement with plan. Procedures Procedure Narrative Packing exchange: Packing removed from right upper back abscess cavity. Cavity was then irrigated with a solution of 25:75 betadine:NS. Wound cavity was then repacked with half-inch iodoform packing. Sterile dressing applied. Tolerated well. No complications. Diagnosis Primary Impression: Wound check, abscess Referrals: Primary Care Physician 3 days Additional Instructions: Remove and exchange packing in 2 days, then daily. Continue antibiotics daily. Return to the emergency department for worsening symptoms or any other concerns. Scripts Tramadol 50 Mg Tab50 Mg PO Q6H PRN (PAIN) #15 TAB Ref 0 Prov:Raphael Pearson MD 09/21/16 Disposition: 01 DISCHARGE HOME Condition: Stable Raphael Pearson MD Sep 21, 2016 17:21
[2016-09-21] MEDS ORDERED: TRAM50TA PO (17:27)
== END 2016-09-21 17:37 | disposition home or self-care (01) ==
LOC: PHEFT 16:49
DX: L02.212 Cutaneous abscess of back [any part, except buttock and flank] (principal); Z48.01 Encounter for change or removal of surgical wound dressing
CPT/HCPCS: 99281

== ENCOUNTER 2016-09-26 20:11 | Emergency (ER) | payer SELFPAY ==
[~2016-09-26] VITALS: Ht 170.2 cm; Wt 92.1 kg
[~2016-09-26 20:11] MED LIST changes: -IPRA0.06 EACH NARE; -PROT40TA PO; -ZOFR4TAB3 SL
[2016-09-26 20:21] VITALS: BP 156/80; PULSE 87; RESP 18; TEMP 98.4; O2SAT 98
--- NOTE | 2016-09-26 20:48 | PD ---
HPI Chief Complaint: Wound/Suture/Staple Re-Check Time Seen by Provider: 20:25 Travel History International Travel<30 days: No Contact w/Intl Traveler<30days: No Traveled to known affect area: No History of Present Illness HPI 50-year-old male here for evaluation of a wound check. Patient was seen in the emergency department on 09/19/16 by me and had incision and drainage of large right upper back abscess. Wound was packed at that time, and the patient returned 2 days later for packing removal. He was seen by his primary care physician 4 days ago and had the wound repacked. He has been taking Bactrim and Keflex. He believes the wound has been improving. He does have some mild discomfort, however this is much better than before. PFSH Past Medical History Arthritis: Yes (DIAGNOSED AT 12 YRS. OLD) Asthma: No Autoimmune Disease: No Blood Disorders: No Anxiety: No Depression: No Heart Rhythm Problems: No Cancer: No Cardiovascular Problems: Yes High Cholesterol: Yes (DIAGNOSED IN 2004.) Chemotherapy: No Chest Pain: No Congestive Heart Failure: No COPD: No Cerebrovascular Accident: No Diminished Hearing: No Endocrine: No Gastrointestinal Disorders: Yes GERD: Yes Genitourinary: No Headaches: No Hepatitis: No Hiatal Hernia: No Hypertension: No Immune Disorder: No Kidney Stones: No Neurologic: No Respiratory: No Migraines: No Myocardial Infarction: No Pneumonia: Yes Radiation Therapy: No Renal Failure: No Seizures: No Sleep Apnea: No Ulcer: No Past Surgical History Abdominal Surgery: Yes (APPENDECTOMY 2002) AICD: No Appendectomy: Yes (PERFORMED IN 2002) Arteriovenous Shunt: No Cardiac Surgery: No Cholecystectomy: No Ear Surgery: No Eye Surgery: No Genitourinary Surgery: No Gynecologic Surgery: No Insulin Pump: No Joint Replacement: No Oral Surgery: No Pacemaker: No Thoracic Surgery: No Other Surgery: Yes Social History Alcohol Use: No (DECEMBER OF 2005) Tobacco Use: No Substance Use: No (COCAINE LAST USED IN DECEMBER 2005.) Allergies-Medications (Allergen,Severity, Reaction): Coded Allergies: Tramadol (Verified Allergy, Mild, Rash, 09/26/16) Reported Meds & Prescriptions Reported Meds & Active Scripts Active Keflex (Cephalexin) 500 Mg Cap 500 Mg PO Q8H Bactrim DS (Sulfamethoxazole-Trimethoprim) 800-160 Mg Tab 1 Tab PO BID Ibuprofen 800 Mg Tab 800 Mg PO Q8H PRN Review of Systems Except as stated in HPI: all other systems reviewed are Neg Physical Exam Narrative GENERAL: Well-developed, well-nourished, comfortable, no apparent distress. SKIN: Right upper back with open wound with packing in place with mild purulent drainage and mild surrounding warmth/erythema/induration. No crepitus. Area of warmth/erythema/induration has significantly improved since last summer evaluated the patient. PSYCHIATRIC: Appropriate mood and affect; insight and judgment normal. Data Data Last Documented VS Vital Signs Date Time Temp Pulse Resp B/P Pulse Ox O2 Delivery O2 Flow Rate FiO2 09/26/16 20:21 98.4 87 18 156/80 98 MDM Medical Decision Making Medical Screen Exam Complete: Yes Emergency Medical Condition: Yes Differential Diagnosis Wound check Narrative Course 50-year-old male here for evaluation of a wound check after incision and drainage of right upper back abscess 7 days ago by me. Packing which was placed 4 days ago by the patient's primary care physician was removed today, and the wound capsule was irrigated with copious amounts of normal saline. Wound was not repacked. Antibiotic ointment and Band-Aid was applied. Diagnosis Primary Impression: Wound check, abscess Additional Instructions: Return to the emergency department for worsening symptoms or any other concerns. Disposition: 01 DISCHARGE HOME Condition: Stable Raphael Pearson MD Sep 26, 2016 20:48
== END 2016-09-26 20:56 | disposition home or self-care (01) ==
LOC: PHEFT 20:11
DX: L02.212 Cutaneous abscess of back [any part, except buttock and flank] (principal)
CPT/HCPCS: 99281

== ENCOUNTER 2017-02-07 17:33 | Emergency (ER) | payer SELFPAY ==
[~2017-02-07] VITALS: Ht 170.2 cm; Wt 93.6 kg
[~2017-02-07 17:33] MED LIST changes: +IBUP1TAB7 PO; -IBUP800T23 PO
[2017-02-07 17:39] VITALS: BP 114/72; PULSE 88; RESP 16; TEMP 99.1; O2SAT 96
[2017-02-07 17:59] VITALS: O2SAT 99
--- NOTE | 2017-02-07 18:15 | PD ---
HPI Chief Complaint: Fever Time Seen by Provider: 17:53 Travel History International Travel<30 days: No Contact w/Intl Traveler<30days: No Traveled to known affect area: No History of Present Illness HPI PATIENT NOTED HAVING A SUBJECTIVE "FEVER" SINCE HE DID NOT CHECK HIS TEMPERATURE (DOESN'T HAVE THERMOMETER). AFTERWARDS, PT STARTED TO HAVE DIARRHEA , NONBLOODY, NO ASSOC N/V AT THIS TIME. NO ABD PAIN PSHX: APPENDECTOMY 2000 PMHX: PT RECOVERING ADDICT, PNA, CHOL, GERD PFSH Past Medical History Arthritis: Yes (DIAGNOSED AT 12 YRS. OLD) Asthma: No Autoimmune Disease: No Blood Disorders: No Anxiety: No Depression: No Heart Rhythm Problems: No Cancer: No Cardiovascular Problems: Yes High Cholesterol: Yes (DIAGNOSED IN 2004.) Chemotherapy: No Chest Pain: No Congestive Heart Failure: No COPD: No Cerebrovascular Accident: No Diminished Hearing: No Endocrine: No Gastrointestinal Disorders: Yes GERD: Yes Genitourinary: No Headaches: No Hepatitis: No Hiatal Hernia: No Hypertension: No Immune Disorder: No Kidney Stones: No Musculoskeletal: Yes Neurologic: No Respiratory: No Migraines: No Myocardial Infarction: No Pneumonia: Yes Radiation Therapy: No Renal Failure: No Seizures: No Sleep Apnea: No Ulcer: No Tetanus Vaccination: < 5 Years Influenza Vaccination: No Past Surgical History Abdominal Surgery: Yes (APPENDECTOMY 2002) AICD: No Appendectomy: Yes (PERFORMED IN 2002) Arteriovenous Shunt: No Cardiac Surgery: No Cholecystectomy: No Ear Surgery: No Eye Surgery: No Genitourinary Surgery: No Gynecologic Surgery: No Insulin Pump: No Joint Replacement: No Oral Surgery: No Pacemaker: No Thoracic Surgery: No Other Surgery: Yes Social History Alcohol Use: No (DECEMBER OF 2005) Tobacco Use: No Substance Use: No (COCAINE LAST USED IN DECEMBER 2005.) Allergies-Medications (Allergen,Severity, Reaction): Coded Allergies: tramadol (Unverified Allergy, Mild, Rash, 02/07/17) Reported Meds & Prescriptions Reported Meds & Active Scripts Active Keflex (Cephalexin) 500 Mg Cap 500 Mg PO Q8H Bactrim DS (Sulfamethoxazole-Trimethoprim) 800-160 Mg Tab 1 Tab PO BID Ibuprofen 800 Mg Tab 800 Mg PO Q8H PRN Review of Systems Except as stated in HPI: all other systems reviewed are Neg General / Constitutional: Positive: Fever Eyes: No: Visual changes HENT: No: Headaches Cardiovascular: No: Chest Pain or Discomfort Respiratory: No: Shortness of Breath Gastrointestinal: Positive: Diarrhea Genitourinary: No: Dysuria Musculoskeletal: No: Pain Skin: No Rash Neurologic: No: Weakness Psychiatric: No: Depression Endocrine: No: Polydipsia Hematologic/Lymphatic: No: Easy Bruising Physical Exam Narrative GENERAL: SKIN: Warm and dry. HEAD: Atraumatic. Normocephalic. EYES: Pupils equal and round. No scleral icterus. No injection or drainage. ENT: No nasal bleeding or discharge. Mucous membranes pink and moist. NECK: Trachea midline. No JVD. CARDIOVASCULAR: Regular rate and rhythm. RESPIRATORY: No accessory muscle use. Clear to auscultation. Breath sounds equal bilaterally. GASTROINTESTINAL: Abdomen soft, non-tender, nondistended. MUSCULOSKELETAL: Extremities without clubbing, cyanosis, or edema. No obvious deformities. NEUROLOGICAL: Awake and alert. No obvious cranial nerve deficits. Motor grossly within normal limits. Five out of 5 muscle strength in the arms and legs. Normal speech. PSYCHIATRIC: Appropriate mood and affect; insight and judgment normal. Data Data Last Documented VS Vital Signs Date Time Temp Pulse Resp B/P (MAP) Pulse Ox O2 Delivery O2 Flow Rate FiO2 02/07/17 17:59 99 02/07/17 17:59 Room Air 02/07/17 17:39 99.1 88 16 114/72 (86) Orders Orders Complete Blood Count With Diff (02/07/17 17:55) Comprehensive Metabolic Panel (02/07/17 17:55) Lipase (02/07/17 17:55) Urinalysis - C+S If Indicated (02/07/17 17:55) Influenzae A/B Antigen (02/07/17 17:55) Ct Abd/Pel W/O Iv Contrast (02/07/17 17:55) Iv Access Insert/Monitor (02/07/17 17:55) Ecg Monitoring (02/07/17 17:55) Oximetry (02/07/17 17:55) Drug Screen, Random Urine (02/07/17 17:55) Alcohol (Ethanol) (02/07/17 17:55) Salicylates (Aspirin) (02/07/17 17:55) Tylenol (Acetaminophen) (02/07/17 17:55) Labs Laboratory Tests Test 02/07/17 18:20 White Blood Count 4.5 TH/MM3 Red Blood Count 4.79 MIL/MM3 Hemoglobin 14.1 GM/DL Hematocrit 43.1 % Mean Corpuscular Volume 90.1 FL Mean Corpuscular Hemoglobin 29.5 PG Mean Corpuscular Hemoglobin Concent 32.7 % Red Cell Distribution Width 12.9 % Platelet Count 213 TH/MM3 Mean Platelet Volume 8.0 FL Neutrophils (%) (Auto) 59.5 % Lymphocytes (%) (Auto) 23.7 % Monocytes (%) (Auto) 13.7 % Eosinophils (%) (Auto) 2.4 % Basophils (%) (Auto) 0.7 % Neutrophils # (Auto) 2.7 TH/MM3 Lymphocytes # (Auto) 1.1 TH/MM3 Monocytes # (Auto) 0.6 TH/MM3 Eosinophils # (Auto) 0.1 TH/MM3 Basophils # (Auto) 0.0 TH/MM3 CBC Comment DIFF FINAL Differential Comment Urine Color YELLOW Urine Turbidity CLEAR Urine pH 6.0 Urine Specific [place] 1.032 Urine Protein NEG mg/dL Urine Glucose (UA) NEG mg/dL Urine Ketones TRACE mg/dL Urine Occult Blood NEG Urine Nitrite NEG Urine Bilirubin NEG Urine Leukocyte Esterase NEG Urine WBC 0-2 /hpf Urine Squamous Epithelial Cells 0-5 /hpf Microscopic Urinalysis Comment CULT NOT INDICATED Blood Urea Nitrogen 13 MG/DL Creatinine 1.10 MG/DL Random Glucose 100 MG/DL Total Protein 7.3 GM/DL Albumin 3.5 GM/DL Calcium Level 9.3 MG/DL Alkaline Phosphatase 89 U/L Aspartate Amino Transf (AST/SGOT) 36 U/L Alanine Aminotransferase (ALT/SGPT) 52 U/L Total Bilirubin 0.5 MG/DL Sodium Level 137 MEQ/L Potassium Level 4.4 MEQ/L Chloride Level 99 MEQ/L Carbon Dioxide Level 33.8 MEQ/L Anion Gap 4 MEQ/L Estimat Glomerular Filtration Rate 71 ML/MIN Lipase 203 U/L Urine Opiates Screen NEG Urine Barbiturates Screen NEG Urine Amphetamines Screen NEG Urine Benzodiazepines Screen NEG Urine Cocaine Screen NEG Urine Cannabinoids Screen NEG Ethyl Alcohol Level LESS THAN 3 MG/DL MDM Medical Decision Making Medical Screen Exam Complete: Yes Emergency Medical Condition: Yes Medical Record Reviewed: Yes Differential Diagnosis ENTERITIS V COLITIS V DIVERTIC V VIRAL ENTERITIS Narrative Course EXPLAIN CT RESULTS WHICH ONLY SHOWED DESCENDING COLON AND SIGMOID DIVERTICULOSIS WELL A SPLENIC CYST...BOTH STABLE AND NOT CAUSE OF SYMPTOMS.... Diagnosis Primary Impression: Viral enteritis Patient Instructions: Acute Diarrhea (GEN), General Instructions Scripts Ondansetron Odt (Zofran Odt) 4 Mg Tab 4 MG SL Q6HR Y for Nausea/Vomiting, #10 TAB 0 Refills Prov: Elier French MD 02/07/17 Diphenoxylate-Atropine (Lomotil) 2.5-0.025 Mg Tab 1 TAB PO Q6H Y for DIARRHEA, #10 TAB 0 Refills Prov: Elier French MD 02/07/17 Disposition: 01 DISCHARGE HOME Condition: Stable Elier French MD Feb 07, 2017 18:15
--- NOTE | 2017-02-07 18:21 | RADRPT ---
EXAM DATE/TIME: 02/07/2017 18:06 [facility] COMPARISON: CT ABDOMEN & PELVIS W CONTRAST, June 25, 2016, 4:06. INDICATIONS : Fever and diarrhea. ORAL CONTRAST: No oral contrast ingested. RADIATION DOSE: 18.63 CTDIvol (mGy) MEDICAL HISTORY : Hypercholesterolemia. Gastroesophageal reflux disease. SURGICAL HISTORY : Appendectomy. ENCOUNTER: Initial ACUITY: 4 - 6 days PAIN SCALE: 0/10 LOCATION: abdomen TECHNIQUE: Volumetric scanning of the abdomen and pelvis was performed. Using automated exposure control and ad justment of the mA and/or kV according to patient size, radiation dose was kept as low as reasonably achievable to obtain optimal diagnostic quality images. DICOM format image data is available electro nically for review and comparison. The lack of IV contrast limits the diagnosis for certain organ pa thology. FINDINGS: LOWER LUNGS: The visualized lower lungs are clear. LIVER: Homogeneous density without lesion. There is no dilation of the biliary tree. No calcified gallston es. SPLEEN: Stable 2 cm cyst in the spleen. PANCREAS: Within normal limits. KIDNEYS: Normal in size and shape. There is no mass, stone, or hydronephrosis. ADRENAL GLANDS: Within normal limits. VASCULAR: There is no aortic aneurysm. BOWEL/MESENTERY: The stomach, small bowel, and colon demonstrate no acute abnormality. There is no free intraperitone al air or fluid. Scattered diverticulosis of the descending and sigmoid colon without inflammatory ch anges. No significant change compared to the prior study. ABDOMINAL WALL: Within normal limits. RETROPERITONEUM: There is no lymphadenopathy. BLADDER: No wall thickening or mass. REPRODUCTIVE: Within normal limits. INGUINAL: There is no lymphadenopathy or hernia. MUSCULOSKELETAL: Within normal limits for patient age. CONCLUSION: 1. Stable 2 cm cyst in the spleen. 2. Stable scattered diverticulosis of the descending and sigmoid colon without inflammatory changes. 3. No calcified renal stones or hydronephrosis. Ty Wheeler MD on February 07, 2017 at 18:16 Board Certified Radiologist. This report was verified electronically.
[2017-02-07 18:33] LABS: BLOOD, URINE NEG (NEG); GLUCOSE,URINE NEG (NEG); KETONE, URINE TRACE mg/dL (NEG); NITRITE,URINE NEG (NEG)
[2017-02-07 18:43] LABS: AUTOMATED NEUTROPHIL # 2.7 TH/MM3 (1.8-7.7); BASOPHIL % 0.7 % (0.0-2.0); EOSINOPHIL # 0.1 TH/MM3 (0-0.4); EOSINOPHIL % 2.4 % (0.0-4.0); HEMATOCRIT 43.1 % (39.0-51.0); HEMO FLAGS DIFF FINAL; LYMPH % 23.7 % (9.0-44.0); LYMPHOCYTE # 1.1 TH/MM3 (1.0-4.8); MEAN CELL VOLUME 90.1 FL (80.0-100.0); MEAN CORPUSCULAR HEMOGLOBIN 29.5 PG (27.0-34.0); MEAN CORPUSCULAR HGB CONC 32.7 % (32.0-36.0); MONO % 13.7 % (0.0-8.0); NEUT % 59.5 % (16.0-70.0); PLATELET COUNT 213 TH/MM3 (150-450); RED BLOOD COUNT 4.79 MIL/MM3 (4.50-5.90); RED CELL DISTRIBUTION WIDTH 12.9 % (11.6-17.2); WHITE BLOOD COUNT 4.5 TH/MM3 (4.0-11.0)
[2017-02-07 18:50] LABS: CHLORIDE 99 MEQ/L (98-107); POTASSIUM 4.4 MEQ/L (3.5-5.1); SODIUM (NA) 137 MEQ/L (136-145)
[2017-02-07 18:54] LABS: ANION GAP 4 MEQ/L (5-15); BICARBONATE 33.8 MEQ/L (21.0-32.0)
[2017-02-07 18:55] LABS: BLOOD UREA NITROGEN 13 MG/DL (7-18)
[2017-02-07 18:57] LABS: ALT (GPT) 52 U/L (12-78); AST (GOT) 36 U/L (15-37); GLOMERULAR FILTRATION RATE 71 ML/MIN (>89)
[2017-02-07 18:59] LABS: TOTAL BILIRUBIN ADULT 0.5 MG/DL (0.2-1.0)
[2017-02-07 19:00] LABS: ALKALINE PHOSPHATASE 89 U/L (45-117)
[2017-02-07 19:01] LABS: URINE COLOR YELLOW (YELLW/STRAW)
[2017-02-07 19:02] LABS: ALCOHOL LESS THAN 3 MG/DL (0-5); COMMENT (UR) CULT NOT INDICATED; CULTURE IF INDICATED CULT NOT INDICATED; SQUAMOUS EPITHELIAL CELL URINE 0-5 /hpf (0-5); WBC, URINE 0-2 /hpf (0-5)
[2017-02-07] MEDS ORDERED: LOMO2.5T PO (19:08)
[2017-02-07] MEDS ORDERED: ZOFR4TAB3 SL (19:08)
[2017-02-07 19:16] VITALS: BP 123/77; TEMP 99
[2017-02-07 21:50] LABS: ACETAMINOPHEN LESS THAN 2.0 MCG/ML (10.0-30.0)
== END 2017-02-07 19:25 | disposition home or self-care (01) ==
LOC: PHED 17:33
DX: A08.4 Viral intestinal infection, unspecified (principal); E78.00 Pure hypercholesterolemia, unspecified
CPT/HCPCS: 74176; 80053; 80307; 81001; 83690; 85025; 87804; 99284

== ENCOUNTER 2017-07-27 13:18 | Emergency (ER) | payer SELFPAY ==
[~2017-07-27] VITALS: Ht 170.2 cm; Wt 90.0 kg
[~2017-07-27 13:18] MED LIST changes: +LOMO2.5T PO; +ZOFR4TAB3 SL
[2017-07-27 13:43] VITALS: BP 166/96; PULSE 81; RESP 18; TEMP 98.5; O2SAT 95
== END 2017-07-27 15:11 | disposition left against medical advice (07) ==
LOC: PHED 13:18
DX: R50.9 Fever, unspecified (principal); Z53.21 Procedure and treatment not carried out due to patient leaving prior to being seen by health care provider
CPT/HCPCS: 99281

== ENCOUNTER 2017-07-29 12:14 | Emergency (ER) | payer OTHER ==
[~2017-07-29] VITALS: Ht 170.2 cm; Wt 89.2 kg
[2017-07-29 12:38] VITALS: BP 136/85; PULSE 78; RESP 16; TEMP 98.5; O2SAT 97
--- NOTE | 2017-07-29 14:32 | PD ---
HPI Chief Complaint: GI Complaint Time Seen by Provider: 14:30 Travel History International Travel<30 days: No Contact w/Intl Traveler<30days: No Traveled to known affect area: No History of Present Illness HPI Patient comes in complaining of nausea vomiting and diarrhea over the past 5 days and does not appear to be improving. Patient denies any alleviating or aggravating factors. Patient denies any abdominal pain except for transient cramping just prior to diarrhea movements. Patient denies any associated factors such as fever, chest pain, back pain, flank pain, cough/runny nose/sore throat, rash. States allergy to tramadol Past medical history significant for hypercholesterolemia, pneumonia, appendectomy, arthritis, PFSH Past Medical History Arthritis: Yes (DIAGNOSED AT 12 YRS. OLD) Asthma: No Autoimmune Disease: No Blood Disorders: No Anxiety: No Depression: No Heart Rhythm Problems: No Cancer: No Cardiovascular Problems: Yes High Cholesterol: Yes (DIAGNOSED IN 2004.) Chemotherapy: No Chest Pain: No Congestive Heart Failure: No COPD: No Cerebrovascular Accident: No Diminished Hearing: No Endocrine: No Gastrointestinal Disorders: Yes GERD: Yes Genitourinary: No Headaches: No Hepatitis: No Hiatal Hernia: No Hypertension: No Immune Disorder: No Kidney Stones: No Musculoskeletal: Yes Neurologic: No Respiratory: No Migraines: No Myocardial Infarction: No Pneumonia: Yes Radiation Therapy: No Renal Failure: No Seizures: No Sleep Apnea: No Ulcer: No Past Surgical History Abdominal Surgery: Yes (APPENDECTOMY 2002) AICD: No Appendectomy: Yes (PERFORMED IN 2002) Arteriovenous Shunt: No Cardiac Surgery: No Cholecystectomy: No Ear Surgery: No Eye Surgery: No Genitourinary Surgery: No Gynecologic Surgery: No Insulin Pump: No Joint Replacement: No Oral Surgery: No Pacemaker: No Thoracic Surgery: No Other Surgery: Yes Social History Alcohol Use: No (DECEMBER OF 2005) Tobacco Use: No Substance Use: No (COCAINE LAST USED IN DECEMBER 2005.) Allergies-Medications (Allergen,Severity, Reaction): Coded Allergies: tramadol (Unverified Allergy, Mild, Rash, 07/29/17) Reported Meds & Prescriptions Reported Meds & Active Scripts Active Flagyl (Metronidazole) 500 Mg Tab 500 Mg PO BID 7 Days Cipro (Ciprofloxacin HCl) 500 Mg Tab 500 Mg PO BID 7 Days Bentyl (Dicyclomine HCl) 10 Mg Cap 10 Mg PO TID PRN Zofran Odt (Ondansetron Odt) 4 Mg Tab 4 Mg SL Q6HR PRN Review of Systems General / Constitutional: No: Fever Eyes: No: Visual changes HENT: No: Headaches Cardiovascular: No: Chest Pain or Discomfort Respiratory: No: Shortness of Breath Gastrointestinal: Positive: Nausea, Vomiting, Diarrhea Genitourinary: No: Dysuria Musculoskeletal: No: Pain Skin: No Rash Neurologic: No: Weakness Psychiatric: No: Depression Endocrine: No: Polydipsia Hematologic/Lymphatic: No: Easy Bruising Physical Exam Narrative GENERAL: SKIN: Warm and dry. HEAD: Atraumatic. Normocephalic. EYES: Pupils equal and round. No scleral icterus. No injection or drainage. ENT: No nasal bleeding or discharge. Mucous membranes pink and moist. NECK: Trachea midline. No JVD. CARDIOVASCULAR: Regular rate and rhythm. RESPIRATORY: No accessory muscle use. Clear to auscultation. Breath sounds equal bilaterally. GASTROINTESTINAL: Abdomen soft, non-tender, nondistended. MUSCULOSKELETAL: Extremities without clubbing, cyanosis, or edema. No obvious deformities. NEUROLOGICAL: Awake and alert. No obvious cranial nerve deficits. Motor grossly within normal limits. Five out of 5 muscle strength in the arms and legs. Normal speech. PSYCHIATRIC: Appropriate mood and affect; insight and judgment normal. Data Data Last Documented VS Orders Orders Urinalysis - C+S If Indicated (07/29/17 13:43) Complete Blood Count With Diff (07/29/17 14:36) Comprehensive Metabolic Panel (07/29/17 14:36) Lipase (07/29/17 14:36) Abdomen, Flat & Upright (07/29/17 ) Iv Access Insert/Monitor (07/29/17 14:36) Ecg Monitoring (07/29/17 14:36) Oximetry (07/29/17 14:36) NPO (07/29/17 14:36) Ondansetron Inj (Zofran Inj) (07/29/17 14:45) Sodium Chlor 0.9% 1000 Ml Inj (Ns 1000 M (07/29/17 14:36) Sodium Chloride 0.9% Flush (Ns Flush) (07/29/17 14:45) Dicyclomine Inj (Bentyl Inj) (07/29/17 14:45) Ed Discharge Order (07/29/17 16:02) Labs Laboratory Tests Test 07/29/17 14:35 07/29/17 14:50 Urine Collection Type CLEAN CATCH Urine Color YELLOW Urine Turbidity CLEAR Urine pH 5.5 Urine Specific [place] 1.010 Urine Protein NEG mg/dL Urine Glucose (UA) NEG mg/dL Urine Ketones NEG mg/dL Urine Occult Blood NEG Urine Nitrite NEG Urine Bilirubin NEG Urine Urobilinogen 0.2 MG/DL Urine Leukocyte Esterase NEG Urine Squamous Epithelial Cells 0-5 /hpf Microscopic Urinalysis Comment CULT NOT INDICATED White Blood Count 8.2 TH/MM3 Red Blood Count 4.91 MIL/MM3 Hemoglobin 14.5 GM/DL Hematocrit 43.6 % Mean Corpuscular Volume 88.9 FL Mean Corpuscular Hemoglobin 29.6 PG Mean Corpuscular Hemoglobin Concent 33.3 % Red Cell Distribution Width 13.4 % Platelet Count 391 TH/MM3 Mean Platelet Volume 8.0 FL Neutrophils (%) (Auto) 72.0 % Lymphocytes (%) (Auto) 19.1 % Monocytes (%) (Auto) 7.3 % Eosinophils (%) (Auto) 1.0 % Basophils (%) (Auto) 0.6 % Neutrophils # (Auto) 5.9 TH/MM3 Lymphocytes # (Auto) 1.6 TH/MM3 Monocytes # (Auto) 0.6 TH/MM3 Eosinophils # (Auto) 0.1 TH/MM3 Basophils # (Auto) 0.0 TH/MM3 CBC Comment DIFF FINAL Differential Comment Blood Urea Nitrogen 15 MG/DL Creatinine 0.95 MG/DL Random Glucose 96 MG/DL Total Protein 7.8 GM/DL Albumin 3.6 GM/DL Calcium Level 8.5 MG/DL Alkaline Phosphatase 88 U/L Aspartate Amino Transf (AST/SGOT) 44 U/L Alanine Aminotransferase (ALT/SGPT) 40 U/L Total Bilirubin 0.6 MG/DL Sodium Level 136 MEQ/L Potassium Level 4.6 MEQ/L Chloride Level 102 MEQ/L Carbon Dioxide Level 26.8 MEQ/L Anion Gap 7 MEQ/L Estimat Glomerular Filtration Rate 84 ML/MIN Lipase 130 U/L [facility] Medical Decision Making Medical Screen Exam Complete: Yes Emergency Medical Condition: Yes Medical Record Reviewed: Yes Differential Diagnosis Bacterial versus viral gastroenteritis versus pancreatitis versus dehydration Narrative Course Signed out to incoming physician pending labs and reevaluation Diagnosis Primary Impression: Gastroenteritis Patient Instructions: Gastroenteritis (ED), General Instructions Scripts Metronidazole (Flagyl) 500 Mg Tab 500 MG PO BID for Infection for 7 Days, #14 TAB 0 Refills Prov: Masoud Abdalla MD 07/29/17 Ciprofloxacin (Cipro) 500 Mg Tab 500 MG PO BID for Infection for 7 Days, #14 TAB 0 Refills Prov: Masoud Abdalla MD 07/29/17 Dicyclomine (Bentyl) 10 Mg Cap 10 MG PO TID Y for ABDOMINAL CRAMPING, #20 CAP 0 Refills Prov: Masoud Abdalla MD 07/29/17 Ondansetron Odt (Zofran Odt) 4 Mg Tab 4 MG SL Q6HR Y for Nausea/Vomiting, #20 TAB 0 Refills Prov: Elier French MD 07/29/17 Disposition: 01 DISCHARGE HOME Condition: Stable Elier French MD July 29, 2017 14:32
[2017-07-29 14:34] VITALS: BP 128/77; PULSE 78; RESP 20; O2SAT 97
[2017-07-29] MEDS ORDERED: SODIUM CHLOR 0.9% 1000 ML INJ 1,000 ML IV SCH (14:36)
[2017-07-29] MEDS ORDERED: DICYCLOMINE HCL 20 MG/2 ML VIAL IM ONE (14:45)
[2017-07-29] MEDS ORDERED: SODIUM CHLORIDE 0.9% FLUSH 10 ML FLUSH IV FLUSH PRN (14:45)
[2017-07-29] MEDS ORDERED: ONDANSETRON HCL 4 MG/2 ML VIAL IVP ONE (14:45)
[2017-07-29 15:02] LABS: BILIRUBIN, URINE NEG (NEG); BLOOD, URINE NEG (NEG); GLUCOSE,URINE NEG (NEG); KETONE, URINE NEG (NEG); NITRITE,URINE NEG (NEG); PH, URINE 5.5 (5.0-8.5); URINE COLOR YELLOW (YELLW/STRAW); URINE LEUKOCYTE ESTERASE NEG (NEG)
[2017-07-29 15:04] LABS: AUTOMATED NEUTROPHIL # 5.9 TH/MM3 (1.8-7.7); BASOPHIL % 0.6 % (0.0-2.0); EOSINOPHIL # 0.1 TH/MM3 (0-0.4); HEMATOCRIT 43.6 % (39.0-51.0); HEMOGLOBIN 14.5 GM/DL (13.0-17.0); LYMPH % 19.1 % (9.0-44.0); LYMPHOCYTE # 1.6 TH/MM3 (1.0-4.8); MEAN CELL VOLUME 88.9 FL (80.0-100.0); MEAN CORPUSCULAR HEMOGLOBIN 29.6 PG (27.0-34.0); MEAN CORPUSCULAR HGB CONC 33.3 % (32.0-36.0); MONO % 7.3 % (0.0-8.0); MONOCYTE # 0.6 TH/MM3 (0-0.9); PLATELET COUNT 391 TH/MM3 (150-450); RED BLOOD COUNT 4.91 MIL/MM3 (4.50-5.90); RED CELL DISTRIBUTION WIDTH 13.4 % (11.6-17.2); WHITE BLOOD COUNT 8.2 TH/MM3 (4.0-11.0)
[2017-07-29 15:15] LABS: CHLORIDE 102 MEQ/L (98-107); SODIUM (NA) 136 MEQ/L (136-145)
[2017-07-29] MEDS ORDERED: ZOFR4TAB3 SL (15:17)
[2017-07-29 15:18] LABS: CALCIUM 8.5 MG/DL (8.5-10.1)
[2017-07-29 15:19] LABS: ALBUMIN 3.6 GM/DL (3.4-5.0); BICARBONATE 26.8 MEQ/L (21.0-32.0); BLOOD UREA NITROGEN 15 MG/DL (7-18); GLUCOSE,RANDOM 96 MG/DL (74-106)
[2017-07-29 15:20] LABS: SQUAMOUS EPITHELIAL CELL URINE 0-5 /hpf (0-5)
[2017-07-29 15:21] VITALS: O2SAT 96
[2017-07-29 15:22] LABS: ALT (GPT) 40 U/L (12-78); AST (GOT) 44 U/L (15-37); CREATININE 0.95 MG/DL (0.60-1.30); GLOMERULAR FILTRATION RATE 84 ML/MIN (>89)
[2017-07-29 15:24] LABS: TOTAL BILIRUBIN ADULT 0.6 MG/DL (0.2-1.0); TOTAL PROTEIN 7.8 GM/DL (6.4-8.2)
[2017-07-29 15:25] LABS: ALKALINE PHOSPHATASE 88 U/L (45-117)
--- NOTE | 2017-07-29 15:26 | RADRPT ---
EXAM DATE: 07/29/2017 3:10 PM EDT AGE/SEX: 51 years / Male INDICATIONS: Nausea, vomiting, and diarrhea. CLINICAL DATA: This is the patient's initial encounter. Patient reports that signs and symptoms have been present for 4 - 6 days and indicates a pain score of 3/10. MEDICAL/SURGICAL HISTORY: None. Appendectomy. COMPARISON: No prior [place] exams available for comparison. FINDINGS: AP erect and supine views of the abdomen were obtained and demonstrate gas and stool noted segmentall y in the colon. There are several loops of nondilated air-containing small bowel. There are multiple air-fluid levels in the colon and small bowel on the erect film with no free air or mass effect. Ther e are surgical clips in the right side of the abdomen. The lung bases are clear. The bony structures are intact. CONCLUSION: Nonspecific, nonobstructive bowel gas pattern most consistent with an ileus and/or gastroenteritis. Electronically signed by: Ryland Oconnor MD 07/29/2017 3:25 PM EDT
[2017-07-29] MEDS ORDERED: CIPR-9 PO (16:02)
[2017-07-29] MEDS ORDERED: DICY10 PO (16:02)
[2017-07-29] MEDS ORDERED: METR-1 PO (16:02)
--- NOTE | 2017-07-29 16:02 | PD ---
Data Data Last Documented VS Vital Signs Date Time Temp Pulse Resp B/P (MAP) Pulse Ox O2 Delivery O2 Flow Rate FiO2 07/29/17 16:24 78 20 124/88 (100) 97 07/29/17 12:38 98.5 Orders Orders Urinalysis - C+S If Indicated (07/29/17 13:43) Complete Blood Count With Diff (07/29/17 14:36) Comprehensive Metabolic Panel (07/29/17 14:36) Lipase (07/29/17 14:36) Abdomen, Flat & Upright (07/29/17 ) Iv Access Insert/Monitor (07/29/17 14:36) Ecg Monitoring (07/29/17 14:36) Oximetry (07/29/17 14:36) NPO (07/29/17 14:36) Ondansetron Inj (Zofran Inj) (07/29/17 14:45) Sodium Chlor 0.9% 1000 Ml Inj (Ns 1000 M (07/29/17 14:36) Sodium Chloride 0.9% Flush (Ns Flush) (07/29/17 14:45) Dicyclomine Inj (Bentyl Inj) (07/29/17 14:45) Ed Discharge Order (07/29/17 16:02) Labs Laboratory Tests Test 07/29/17 14:35 07/29/17 14:50 Urine Collection Type CLEAN CATCH Urine Color YELLOW Urine Turbidity CLEAR Urine pH 5.5 Urine Specific [place] 1.010 Urine Protein NEG mg/dL Urine Glucose (UA) NEG mg/dL Urine Ketones NEG mg/dL Urine Occult Blood NEG Urine Nitrite NEG Urine Bilirubin NEG Urine Urobilinogen 0.2 MG/DL Urine Leukocyte Esterase NEG Urine Squamous Epithelial Cells 0-5 /hpf Microscopic Urinalysis Comment CULT NOT INDICATED White Blood Count 8.2 TH/MM3 Red Blood Count 4.91 MIL/MM3 Hemoglobin 14.5 GM/DL Hematocrit 43.6 % Mean Corpuscular Volume 88.9 FL Mean Corpuscular Hemoglobin 29.6 PG Mean Corpuscular Hemoglobin Concent 33.3 % Red Cell Distribution Width 13.4 % Platelet Count 391 TH/MM3 Mean Platelet Volume 8.0 FL Neutrophils (%) (Auto) 72.0 % Lymphocytes (%) (Auto) 19.1 % Monocytes (%) (Auto) 7.3 % Eosinophils (%) (Auto) 1.0 % Basophils (%) (Auto) 0.6 % Neutrophils # (Auto) 5.9 TH/MM3 Lymphocytes # (Auto) 1.6 TH/MM3 Monocytes # (Auto) 0.6 TH/MM3 Eosinophils # (Auto) 0.1 TH/MM3 Basophils # (Auto) 0.0 TH/MM3 CBC Comment DIFF FINAL Differential Comment Blood Urea Nitrogen 15 MG/DL Creatinine 0.95 MG/DL Random Glucose 96 MG/DL Total Protein 7.8 GM/DL Albumin 3.6 GM/DL Calcium Level 8.5 MG/DL Alkaline Phosphatase 88 U/L Aspartate Amino Transf (AST/SGOT) 44 U/L Alanine Aminotransferase (ALT/SGPT) 40 U/L Total Bilirubin 0.6 MG/DL Sodium Level 136 MEQ/L Potassium Level 4.6 MEQ/L Chloride Level 102 MEQ/L Carbon Dioxide Level 26.8 MEQ/L Anion Gap 7 MEQ/L Estimat Glomerular Filtration Rate 84 ML/MIN Lipase 130 U/L MDM Supervised Visit with MANJULA: No Narrative Course Patient CARE assume from Dr. French at 1500, this is a 51-year-old male presents emergency department with abdominal cramping and diarrhea. Mild nausea without vomiting. His abdomen is benign, is given Bentyl and Zofran, he states he is feeling just a little bit better. His diarrhea is been going on for about the past 5 days, no other sick contacts. No history of antibiotic use. His vital signs are reassuring labs are reassuring as well. No indication further workup this patient. Discussed empiric antibiotics at day 7 of symptoms if he is no better, recommended follow-up with an production assembly supervisor. Discussed follow-up with primary care physician and return to ED criteria. Discussed symptomatic management home, push p.o. fluids. He is stable for discharge Diagnosis Primary Impression: Diarrhea Additional Impression: Abdominal cramping Referrals: Mala Parsons MD Patient Instructions: General Instructions, Gastroenteritis (ED) Scripts Metronidazole (Flagyl) 500 Mg Tab 500 MG PO BID for Infection for 7 Days, #14 TAB 0 Refills Prov: Masoud Abdalla MD 07/29/17 Ciprofloxacin (Cipro) 500 Mg Tab 500 MG PO BID for Infection for 7 Days, #14 TAB 0 Refills Prov: Masoud Abdalla MD 07/29/17 Dicyclomine (Bentyl) 10 Mg Cap 10 MG PO TID Y for ABDOMINAL CRAMPING, #20 CAP 0 Refills Prov: Masoud Abdalla MD 07/29/17 Ondansetron Odt (Zofran Odt) 4 Mg Tab 4 MG SL Q6HR Y for Nausea/Vomiting, #20 TAB 0 Refills Prov: Elier French MD 07/29/17 Disposition: 01 DISCHARGE HOME Condition: Stable Masoud Abdalla MD July 29, 2017 16:02
[2017-07-29 16:24] VITALS: BP 124/88
== END 2017-07-29 16:28 | disposition home or self-care (01) ==
LOC: PHED 12:14
DX: K52.9 Noninfective gastroenteritis and colitis, unspecified (principal); M19.90 Unspecified osteoarthritis, unspecified site; E78.00 Pure hypercholesterolemia, unspecified; K21.9 Gastro-esophageal reflux disease without esophagitis
CPT/HCPCS: 74019; 80053; 81001; 83690; 85025; 96372; 96374; 99284; J0500; J2405; J7030